=== PATIENT | female | born 1990 | race Caucasian/White ===

== ENCOUNTER → 2020-10-12 | Outpatient (CLI) | payer OTHER ==
--- NOTE | 2020-10-12 15:27 | REP ---
INDICATION: ? CORNEAL ECTOPIC . COMPARISON: None. TECHNIQUE: Multiple sequences obtained in the axial, coronal and sagittal planes. FINDINGS: Uterine length is approximately 8.3 cm. The uterus has an arcuate configuration. Endometrial thickness is approximately 1.6 cm in AP dimension. A gestational sac is seen in the fundal endometrium eccentrically on the right. Endometrial signal surrounds the majority of the sac. There is implantation of the sac laterally at the inner surface of the right fundal myometrium. The diameter of the sac is approximately 19 mm. The adjacent peripheral junctional zone appears normal. A normal left ovary is seen with normal size follicles. A complex structure in the right ovary measuring 3.4 cm in maximum diameter is likely related to a complex corpus luteum. There is trace free fluid in the cul-de-sac. IMPRESSION: There is a 19 mm gestational sac located eccentrically in the right fundal endometrium of an arcuate uterus. There are no MR signs of cornual . <Electronically signed by aZy Santana > 10/12/20 [id number]
== END ==
LOC: M PLAIMG 13:07
PROVIDERS: ATTEND Obstetrics & Gynecology
DX: Z36.89 Encounter for other specified antenatal screening (principal)

== ENCOUNTER 2020-10-27 12:39 | Day surgery (SDC) | payer OTHER ==
[~2020-10-27] VITALS: Ht 160 cm; Wt 74.0 kg
[2020-10-27] MEDS ORDERED: DOXYCYCLINE HYCLATE 100MG TABLET PO ONE (13:15)
[2020-10-27] MEDS ORDERED: ACETAMINOPHEN *IV* 1,000 MG IV ONE ×2 (13:15)
[2020-10-27] MEDS ORDERED: fentaNYL 100 MCG/2 ML INJECTION (J3010) As Ordered ONE (13:16)
[2020-10-27] MEDS ORDERED: propofoL 200 MG/20 ML VIAL As Ordered ONE (13:16)
[2020-10-27] MEDS ORDERED: MIDAZOLAM INJ 2MG/2ML VIAL (J2250 PER 1MG) As Ordered ONE (13:16)
[2020-10-27] MEDS ORDERED: LIDOCAINE 2% 100MG/5ML SDV (FOR ANES.) As Ordered ONE (13:16)
[2020-10-27 13:25] LABS: HEMATOCRIT 40.6 % (36.0-47.0); HEMOGLOBIN 13.3 g/dl (12.0-15.5); MEAN CORPUSCULAR HEMOGLOBIN 29.1 pg (27.0-33.0); MEAN CORPUSCULAR HGB CONC 32.8 g/dl (32.0-36.5); MEAN CORPUSCULAR VOLUME 88.8 fl (80.0-96.0); PLATELET COUNT, AUTOMATED 209 10^3/uL (150-450); RED BLOOD COUNT 4.57 10^6/uL (4.00-5.40)
[2020-10-27] MEDS ORDERED: LIDOCAINE 1% SDV 30ML VIAL As Ordered ONE (13:47)
[2020-10-27] MEDS ORDERED: SILVER NITRATE APPLICATOR As Ordered ONE (13:47)
[2020-10-27] MEDS ORDERED: LIDOCAINE 5% OINT 30GM TUBE As Ordered ONE (14:10)
[2020-10-27] MEDS ORDERED: ACETAMINOPHEN 1000MG 100ML IV BTL (OFIRMEV) (J0131 PER 10MG) As Ordered ONE (14:14)
[2020-10-27] MEDS ORDERED: dexameTHASONE 4 MG/ML 1ML VIAL (J1100 PER 1MG) As Ordered ONE (14:14)
[2020-10-27] MEDS ORDERED: ONDANSETRON 4MG/2ML VIAL As Ordered ONE (14:14)
[2020-10-27] MEDS ORDERED: KETOROLAC 60MG 2ML VIAL As Ordered ONE (14:14)
--- NOTE | 2020-10-27 14:51 | ROOPDOC ---
[facility] Report Of Operation Report of Operation DATE OF PROCEDURE: 10/27/20 PREPROCEDURE DIAGNOSES: [early loss]. POSTPROCEDURE DIAGNOSES: [early loss]. PROCEDURE PERFORMED: [suction dilation & curettage]. SURGEON: [Anurag Gonzalez DO ANESTHESIA: [MAC]. ESTIMATED BLOOD LOSS: Approximately [200] mL. COMPLICATIONS: [none]. REMARKS: [none]. FINDINGS: [Exam under anesthesia: anteverted mobile uterus, Ultrasound gestational sac visible, no cardiac activity. Suction d&c performed without complication. Postprocedure ultrasound revealed thin endometrial stripe.] SPECIMENS REMOVED: [products of conception] DESCRIPTION OF PROCEDURE: After obtaining informed consent, the patient was brought to the operating suite and prepped/draped in the usual manner. A timeout was called and the patient name, date of and procedure to be performed were verified. A sterile speculum was placed vaginally. A tenaculum was affixed to the anterior lip of the cervix. 10mL of 1% lidocaine was injected as a paracervical block. The cervix was serially dilated to 13Fr. The 7mm suction canulla was introduced and three passes were performed productive of tissue. This was followed by sharp curettage with good cry noted in 360 degrees. Ultrasound verification of the removal of the gestational sac, and thin endometrial stripe noted. Then one additional suction curettage pass. The tenaculum was removed and hemostasis was obtained with pressure and silver nitrate. All instruments were removed from the vagina. The patient was taken to the recovery room in good condition. DO KELLY Levin BRADLEY J. DO Oct 27, 2020 13:42 ANURAG MENDOZA DO Oct 27, 2020 14:51
[2020-10-27] MEDS ORDERED: ONDANSETRON 4MG/2ML VIAL IV PRN (16:00)
[2020-10-27] MEDS ORDERED: METOCLOPRAMIDE INJ 10MG/2ML VIAL (J2765 PER 1) IV PRN (16:00)
[2020-10-27] MEDS ORDERED: ACETAMINOPHEN 325 MG TAB PO PRN (16:00)
[2020-10-27] MEDS ORDERED: fentaNYL 100 MCG/2 ML INJECTION (J3010) IV PRN (16:00)
[2020-10-27] MEDS ORDERED: PERCOCET 5MG/325MG TAB PO PRN (16:00)
[2020-10-27] MEDS ORDERED: LR 1,000 ML IV SCH (16:00)
[2020-10-27 16:35] VITALS: BP 120/71
== END 2020-10-27 16:46 | disposition home or self-care (01) ==
LOC: M OPP 12:39 → M SDC 12:39 → M OPP 16:46
PROVIDERS: ATTEND Obstetrics & Gynecology
DX: O73.1 Retained portions of placenta and membranes, without hemorrhage (principal); Z88.2 Allergy status to sulfonamides
CPT/HCPCS: 36415; 59820; 85027; 86850; 86900; 86901; 88305; J0131; J1100; J1885; J2250; J2405; J3010; U0002

== ENCOUNTER → 2021-02-13 | Outpatient (CLI) | payer OTHER | LOC: M LAB 14:56 | PROVIDERS: ATTEND Registered Nurse | DX: O46.90 Antepartum hemorrhage, unspecified, unspecified trimester (principal) ==

== ENCOUNTER → 2021-02-16 | Outpatient (CLI) | payer OTHER | LOC: M LAB 08:23 | PROVIDERS: ATTEND Registered Nurse | DX: O46.90 Antepartum hemorrhage, unspecified, unspecified trimester (principal); Z3A.00 Weeks of gestation of pregnancy not specified ==

== ENCOUNTER → 2021-03-01 | Outpatient (REF) | payer OTHER ==
[2021-03-01 10:32] LABS: APPEARANCE, URINE CLEAR (CLEAR); BACTERIA, URINE AUTO 1+ (NEGATIVE); BILIRUBIN, URINE AUTO NEGATIVE (NEGATIVE); BLOOD, URINE BLOOD NEGATIVE (NEGATIVE); COLOR, URINE YELLOW (YELLOW); GLUCOSE, URINE (UA) AUTO NEGATIVE (NEGATIVE); KETONE, URINE AUTO TRACE mg/dL (NEGATIVE); LEUKOCYTE ESTERASE, URINE AUTO NEGATIVE (NEGATIVE); MUCUS, URINE SMALL (NEGATIVE); NITRITE, URINE AUTO NEGATIVE (NEGATIVE); PROTEIN, URINE AUTO NEGATIVE (NEGATIVE); RBC, URINE AUTO 0 /HPF (0-3); SPECIFIC GRAVITY URINE AUTO 1.015 (1.002-1.035); SQUAMOUS EPITHELIAL CELL UR AU 1 /HPF (0-6); UROBILINOGEN, URINE AUTO 0.2 mg/dL (0.0-2.0); WBC, URINE AUTO 1 /HPF (0-3)
== END ==
LOC: M LAB REF 09:37
PROVIDERS: ATTEND Advanced Practice Midwife
DX: R30.0 Dysuria (principal)

== ENCOUNTER 2021-05-19 23:06 | Emergency (ER) | payer OTHER ==
[~2021-05-19] VITALS: Ht 160 cm; Wt 75.0 kg
[2021-05-19] MEDS ORDERED: MULTTAB20 PO (23:31)
[2021-05-19] MEDS ORDERED: NS 1,000 ML IV ONE (23:50)
[2021-05-20 00:22] LABS: ALT/SGPT 20 U/L (12-78); BILIRUBIN,DIRECT < 0.1 MG/DL (0.0-0.2); BILIRUBIN,TOTAL 0.1 MG/DL (0.2-1.0); MAGNESIUM LEVEL 1.7 MG/DL (1.8-2.4); TOTAL PROTEIN 6.4 GM/DL (6.4-8.2)
[2021-05-20] MEDS ORDERED: ADENOSINE 6MG/2ML INJECTION (J0153) IV STA (00:29)
[2021-05-20] MEDS ORDERED: MAG SULF 1GM/100ML (MAG RUN) 1 GM in IV 1 EA IV ONE ×2 (00:30→01:00)
[2021-05-20 00:31] LABS: INR 0.87; PARTIAL THROMBOPLASTIN TIME 27.5 SECONDS (25.9-37.0); PROTHROMBIN TIME 12.2 SECONDS (12.7-14.5)
[2021-05-20 00:43] LABS: BASO % 0.5 % (0.0-1.0); EOS # 0.1 10^3/uL (0.0-0.5); EOS % 1.6 % (0.0-3.0); HEMATOCRIT 33.2 % (36.0-47.0); LYMPH # 2.9 10^3/uL (1.5-5.0); LYMPH % 39.8 % (24.0-44.0); MEAN CORPUSCULAR HEMOGLOBIN 29.5 pg (27.0-33.0); MEAN CORPUSCULAR HGB CONC 33.1 g/dl (32.0-36.5); MONO # 0.6 10^3/uL (0.0-0.8); MONO % 8.3 % (2.0-8.0); NEUTROPHILS # 3.6 10^3/uL (1.5-8.5); NEUTROPHILS % 49.5 % (36.0-66.0); PLATELET COUNT, AUTOMATED 209 10^3/uL (150-450); RED BLOOD COUNT 3.73 10^6/uL (4.00-5.40); WHITE BLOOD COUNT 7.3 10^3/uL (4.0-10.0)
[2021-05-20 02:45] VITALS: BP 100/64
== END 2021-05-20 03:05 | disposition home or self-care (01) ==
LOC: M ED 23:06
DX: O99.412 Diseases of the circulatory system complicating pregnancy, second trimester (principal); I47.1 Supraventricular tachycardia; Z88.2 Allergy status to sulfonamides; Z79.899 Other long term (current) drug therapy
CPT/HCPCS: 80047; 80076; 81001; 83735; 84484; 85025; 85610; 85730; 93005; 96365; 96366; 96375; 99285; J0153; J3475

== ENCOUNTER 2021-09-04 14:29 | Emergency (ER) | payer OTHER ==
[~2021-09-04] VITALS: Ht 160 cm; Wt 80.9 kg
[~2021-09-04 14:29] MED LIST: MULTTAB20 PO
[2021-09-04] MEDS ORDERED: FERR325T18 (15:02)
[2021-09-04 16:18] LABS: BASO # 0.1 10^3/uL (0.0-0.2); BASO % 0.6 % (0.0-1.0); EOS # 0.1 10^3/uL (0.0-0.5); EOS % 1.1 % (0.0-3.0); HEMATOCRIT 30.5 % (36.0-47.0); HEMOGLOBIN 10.2 g/dl (12.0-15.5); LYMPH # 2.5 10^3/uL (1.5-5.0); LYMPH % 30.4 % (24.0-44.0); MEAN CORPUSCULAR HEMOGLOBIN 30.6 pg (27.0-33.0); MEAN CORPUSCULAR HGB CONC 33.4 g/dl (32.0-36.5); MEAN CORPUSCULAR VOLUME 91.6 fl (80.0-96.0); MONO # 0.6 10^3/uL (0.0-0.8); MONO % 6.9 % (2.0-8.0); NEUTROPHILS # 4.8 10^3/uL (1.5-8.5); NEUTROPHILS % 58.5 % (36.0-66.0); PLATELET COUNT, AUTOMATED 198 10^3/uL (150-450); RED BLOOD COUNT 3.33 10^6/uL (4.00-5.40); WHITE BLOOD COUNT 8.3 10^3/uL (4.0-10.0)
[2021-09-04 16:24] LABS: INR 0.9; PROTHROMBIN TIME 12.6 SECONDS (12.7-14.5)
[2021-09-04 16:38] LABS: ALBUMIN 2.8 GM/DL (3.2-5.2); ALT/SGPT 27 U/L (12-78); BILIRUBIN,DIRECT < 0.1 MG/DL (0.0-0.2); BILIRUBIN,TOTAL 0.2 MG/DL (0.2-1.0); BLOOD UREA NITROGEN 13 MG/DL (7-18); CALCIUM LEVEL 8.3 MG/DL (8.5-10.1); CARBON DIOXIDE LEVEL 22 MEQ/L (21-32); CHLORIDE LEVEL 108 MEQ/L (98-107); CREATININE FOR GFR 0.56 MG/DL (0.55-1.30); GLOMERULAR FILTRATION RATE > 60.0 (>60); GLUCOSE, FASTING 117 MG/DL (70-100); POTASSIUM SERUM 3.9 MEQ/L (3.5-5.1); SODIUM LEVEL 136 MEQ/L (136-145); TOTAL PROTEIN 6.4 GM/DL (6.4-8.2)
[2021-09-04 17:30] VITALS: BP 110/67
== END 2021-09-04 18:00 | disposition home or self-care (01) ==
LOC: M ED 14:29
DX: O98.513 Other viral diseases complicating pregnancy, third trimester (principal); U07.1 COVID-19; Z3A.34 34 weeks gestation of pregnancy; O24.419 Gestational diabetes mellitus in pregnancy, unspecified control; Z79.899 Other long term (current) drug therapy; Z88.2 Allergy status to sulfonamides

== ENCOUNTER 2021-10-05 07:54 | Inpatient (IN) | payer OTHER ==
[~2021-10-05] VITALS: Ht 160 cm; Wt 78.3 kg
[~2021-10-05 07:54] MED LIST changes: +FERR325T18
[2021-10-05 09:15] VITALS: BP 107/64
[2021-10-05] MEDS ORDERED: ACET500P3 PO (09:19)
[2021-10-05] MEDS ORDERED: VITA100T59 PO (09:19)
[2021-10-05] MEDS ORDERED: HOME MED LIST COMPLETE! XX SCH (09:55)
[2021-10-05 09:59] LABS: HEMOGLOBIN 10.9 g/dl (12.0-15.5); MEAN CORPUSCULAR HEMOGLOBIN 29.9 pg (27.0-33.0); MEAN CORPUSCULAR VOLUME 90.4 fl (80.0-96.0); PLATELET COUNT, AUTOMATED 194 10^3/uL (150-450); RED BLOOD COUNT 3.65 10^6/uL (4.00-5.40); WHITE BLOOD COUNT 8.6 10^3/uL (4.0-10.0)
[2021-10-05 10:35] LABS: GLUCOSE,RANDOM 82 MG/DL (LESS THAN 200)
[2021-10-05 11:51] VITALS: BP 127/71
[2021-10-05] MEDS ORDERED: TRANEXAMIC ACID INJection 1,000 MG in NS 100 ML IV PRN (12:05)
[2021-10-05] MEDS ORDERED: LACTATED RINGER'S 1000 ML IV ONE (12:05)
[2021-10-05] MEDS ORDERED: METHYLERGONOVINE MALEATE 0.2 MG/ML VIAL (J2210) IM PRN (12:05)
[2021-10-05] MEDS ORDERED: miSOPROStol 50MCG 1/2 TABLET PO ONE ×2 (12:05→18:10)
[2021-10-05] MEDS ORDERED: OXYTOCIN DRIP 30 UNITS in IV 1 EA IV PRN ×4 (12:05)
[2021-10-05] MEDS ORDERED: LR 1,000 ML IV SCH (12:05)
[2021-10-05] MEDS ORDERED: OXYTOCIN INJ 10 UNITS/ML VIAL (J2590) IV PRN (12:05)
[2021-10-05 15:30] VITALS: BP 111/51
[2021-10-05 16:54] VITALS: BP 110/51
[2021-10-05 18:46] VITALS: BP 109/54
[2021-10-05] MEDS ORDERED: PROMETHAZINE 25MG/ML 1ML VIAL IV ONE (22:30)
[2021-10-05] MEDS ORDERED: BUTORPHANOL 2 MG/ML INJ (J0595) IV ONE (22:30)
[2021-10-05 23:03] VITALS: BP 108/61
[2021-10-06] VITALS (28 sets, daily range): BP systolic 108–159; BP diastolic 55–85
[2021-10-06] MEDS ORDERED: FENTANYL 2MCG/ML ROPIVACAINE 0.2% IN 0.9% NACL 100ML IVBAG As Ordered ONE (00:38)
[2021-10-06] MEDS ORDERED: EPIDURAL/PCA KEYS XX PRN (00:45)
[2021-10-06] MEDS ORDERED: NALOXONE INJ 0.4MG/1ML VIAL (J2310 PER 1MG) IV PRN (00:45)
[2021-10-06] MEDS ORDERED: FENTANYL/ROPIVACAINE/NACL BAG 100 ML EPIDURAL SCH (00:45)
[2021-10-06] MEDS ORDERED: ONDANSETRON 4MG 2ML VIAL IV PRN (00:45)
[2021-10-06] MEDS ORDERED: LR 500 ML IV PRN (00:45)
[2021-10-06] MEDS ORDERED: diphenhydrAMINE 50MG/ML VIAL (J1200) IV PRN (00:45)
[2021-10-06] MEDS ORDERED: ePHEDrine SULFATE 25 MG/5 ML(5MG/ML) SYRINGE IVP PRN (00:45)
[2021-10-06] MEDS ORDERED: METHYLERGONOVINE MALEATE 0.2 MG TAB PO PRN (10:55)
[2021-10-06] MEDS ORDERED: RHOGAM 300 MCG (1500 IU) INJ (J2790) IM SCH (10:55)
[2021-10-06] MEDS ORDERED: DIBUCAINE 1% OINTMENT 30GM TOP PRN (10:55)
[2021-10-06] MEDS: IBUPROFEN 800 MG TAB PO PRN (14:49)
[2021-10-06] MEDS: ACETAMINOPHEN TAB 650MG DOSE (2X325MG) PO PRN (17:51)
[2021-10-07] MEDS: IBUPROFEN 800 MG TAB PO PRN ×3 (00:47→20:24)
[2021-10-07] MEDS: DOCUSATE SODIUM 100MG CAPSULE PO PRN ×2 (05:46→20:23)
[2021-10-07] MEDS: ACETAMINOPHEN TAB 650MG DOSE (2X325MG) PO PRN (05:47)
[2021-10-07 06:00] VITALS: BP 100/60
[2021-10-07] MEDS: PRENATAL VITAMINS CHEWABLE TABLET PO SCH (08:48)
[2021-10-07 18:00] VITALS: BP 95/63
[2021-10-08] MEDS: ACETAMINOPHEN TAB 650MG DOSE (2X325MG) PO PRN ×2 (01:23→15:29)
[2021-10-08 06:00] VITALS: BP 106/60
[2021-10-08] MEDS ORDERED: ACET1TAB55 PO (06:19)
[2021-10-08] MEDS ORDERED: IBUP80TA PO (06:19)
[2021-10-08] MEDS ORDERED: COLA100C5 PO (06:19)
[2021-10-08] MEDS: PRENATAL VITAMINS CHEWABLE TABLET PO SCH (07:54)
[2021-10-08] MEDS ORDERED: MEASLES,MUMPS,RUBELLA VACCINE INJ (MMR-II) (90707) SC.IMMUN ONE (09:00)
[2021-10-08] MEDS: IBUPROFEN 800 MG TAB PO PRN (10:24)
== END 2021-10-08 17:36 | disposition home or self-care (01) | DRG 805 ==
LOC: M LDI 07:54 → M OBS 10-06 13:45
PROVIDERS: ADMIT Obstetrics & Gynecology; ATTEND Registered Nurse
PROC: 3E0P7GC Introduction of Other Therapeutic Substance into Female Reproductive, Via Natural or Artificial Opening (ICD-10-PCS; 2021-10-05)
PROC: 10E0XZZ Delivery of Products of Conception, External Approach (ICD-10-PCS; principal; 2021-10-06)
DX: O24.420 Gestational diabetes mellitus in childbirth, diet controlled (principal); O99.42 Diseases of the circulatory system complicating childbirth; I47.1 Supraventricular tachycardia; Z3A.39 39 weeks gestation of pregnancy; I34.1 Nonrheumatic mitral (valve) prolapse; O69.1XX0 Labor and delivery complicated by cord around neck, with compression, not applicable or unspecified; Z37.0 Single live birth

== ENCOUNTER → 2022-08-08 | Outpatient (CLI) | payer OTHER ==
[~2022-08-08] MED LIST changes: +ACET1TAB55 PO; +ACET500P3 PO; +COLA100C5 PO; +IBUP80TA PO; +VITA100T59 PO
== END ==
LOC: M CARPUL 15:09
PROVIDERS: ATTEND Physician Assistant
DX: I95.9 Hypotension, unspecified (principal)